=== PATIENT | male | born 1975 | race Caucasian/White ===

== ENCOUNTER 2017-06-15 12:45 | Emergency (ER) | payer SELFPAY ==
[~2017-06-15] VITALS: Ht 177.8 cm; Wt 81.6 kg
[~2017-06-15 12:45] MED LIST: ANAPROX DS550 MG PO; CYCLOBENZAPRINE10 MG PO; HYDROCODONE BIT1 T11 PO; IBU800 MG PO; KEFLEX500 M1 PO; Motrin,Rufen800 MG PO; NAPROSYN500 MG PO; NEXIUM40 MG PO; NKHM; PERCOCET 325 MG1 TA2 PO; PREDNICOT20 MG PO
== END 2017-06-15 13:35 | disposition home or self-care (01) ==
LOC: ED 12:45
DX: M23.8X1 Other internal derangements of right knee (principal); F17.200 Nicotine dependence, unspecified, uncomplicated; M19.90 Unspecified osteoarthritis, unspecified site; K21.9 Gastro-esophageal reflux disease without esophagitis; Z88.6 Allergy status to analgesic agent; Z90.49 Acquired absence of other specified parts of digestive tract; Z88.8 Allergy status to other drugs, medicaments and biological substances; Z79.899 Other long term (current) drug therapy